=== PATIENT | male | born 1945 | race Caucasian/White ===

== ENCOUNTER → 2016-07-30 08:42 | Outpatient (CLI) | payer MEDICARE, BC ==
[2014-08-10 06:40] VITALS: BMI 25.1
[~2016-07-30 08:42] MED LIST: BAYER CHEWABLE81 MG PO; BENADRYL25 MG PO; FISH OIL 1,0001 CA1 PO; IMODIUM2 MG PO
== END | disposition home or self-care (01) ==
LOC: D.CT 07-25 09:00
DX: R10.9 Unspecified abdominal pain (principal)